=== PATIENT | female | born 1935 | race African-American/Black ===

== ENCOUNTER 2019-02-08 15:13 | Inpatient (IN) ==
[2019-02-08 16:36] LABS: BASO# 0.01 X1000 (0.0-0.2); BASO% 0.3 % (0.0-0.8); EOS# 0.15 X1000 (0.0-0.7); EOS% 4.4 % (0.0-10.0); HEMATOCRIT 33.8 % (37.0-47.0); HEMOGLOBIN 11.1 g/dL (12.0-16.0); IMM GRAN# 0.01 X1000 (0.0-0.04); IMM GRAN% 0.3 % (0.0-0.5); LYMPH# 1.01 X1000 (1.2-3.4); LYMPH% 29.8 % (20.5-51.1); MCH 29.6 PG (27-31); MCHC 32.8 g/dL (33-37); MCV 90.1 FL (81-99); MONO% 5.9 % (1.7-9.3); MPV 11.6 FL (7.4-10.4); NEUT# 2.01 X1000 (1.4-6.5); NEUT% 59.3 % (42.2-75.2); PLT 162 X1000 (130-400); RBC 3.75 XMIL (4.2-5.4); RDW 18.7 % (11.5-14.5); WBC 3.39 X1000 (4.8-10.8)
[2019-02-08 16:46] LABS: BILIRUBIN URINE NEGATIVE (NEGATIVE); BLOOD URINE NEGATIVE (NEGATIVE); CLARITY CLEAR (CLEAR); COLOR YELLOW; GLUCOSE URINE NEGATIVE (NEGATIVE); KETONE URINE TRACE mg/dL (NEGATIVE); LEUKOCYTES URINE NEGATIVE (NEGATIVE); NITRITE URINE POSITIVE (NEGATIVE); PH URINE 6.5; PROTEIN URINE TRACE mg/dL (NEGATIVE); UROBILINOGEN URINE NORMAL
[2019-02-08 16:48] LABS: INR 0.96; PROTIME 13.3 Seconds (11.0-16.0)
[2019-02-08 16:55] LABS: URINE SOURCE CATH
[2019-02-08 16:57] LABS: URINE BACTERIA 3+ /HFP; URINE EPITHELIAL CELLS <10 /HPF (<10); URINE RBC <10 /HPF (<10); URINE WBC <10 /HPF (<10)
[2019-02-08 16:58] LABS: URINE CAST NONE SEEN /LPF; URINE CRYSTAL NONE SEEN /HPF; URINE SMALL ROUND CELLS TRANSITIONAL PRESENT; URINE YEAST NONE SEEN /HPF
--- NOTE | 2019-02-08 17:00 | Diag Imaging Result Doc PS360 ---
EXAM: CT HEAD/C-SPINE W/O CONTRAST HISTORY: head injury TECHNIQUE: Routine noncontrasted CT scan of the brain and cervical spine as per standard protocol. Dose reduction technique. This exam was performed using automated exposure control, adjustment of mA or kV according to patient size, and/or use of iterative reconstruction technique COMPARISON: 01/02/2019 CT BRAIN: Extra-axial spaces: Moderate atrophy. Intracranial hemorrhage: None appreciated. Ventricular system: Ex vacuo dilatation left greater than right. Cerebral parenchyma: Stable encephalomalacia left temporal lobe. The white matter hypodensity compatible with microvascular disease. Midline shift: None. Cerebellum: Unremarkable. Brainstem: Unremarkable. Calvarium: Normal. Right frontal extracalvarial hematoma. No acute fracture. Paranasal sinuses and mastoid air cells: Frontal, ethmoid and right maxillary sinusitis. Mastoid air cells and middle ear cavities are clear. . Visualized orbits: Normal. CT CERVICAL SPINE: Fracture: None. There is degenerative disc disease and degenerative facet arthropathy. Vertebral alignment: Scoliosis. No subluxation. Soft tissues: Normal. IMPRESSION: Stable CT of the brain. No acute intracranial or cervical spine abnormality is appreciated. Sinusitis. Electronically signed by Mone Felton 02/08/2019 4:58 PM
--- NOTE | 2019-02-08 17:02 | Diag Imaging Result Doc PS360 ---
EXAM: CHEST-1 VIEW HISTORY: hypothermia, possible sepsis TECHNIQUE: Single view. COMPARISON: None. FINDINGS: There is cardiomegaly.. The pulmonary vasculature is not congested. No infiltrate, effusion, or pneumothorax is appreciated. Degenerative arthropathy about the bilateral shoulders. IMPRESSION: No acute cardiopulmonary abnormality is identified. Electronically signed by Mone Felton 02/08/2019 4:59 PM
[2019-02-08 17:06] LABS: ALBUMIN 3.3 g/dL (3.5-5.0); CREATININE 1.4 mg/dL (0.5-0.9); POTASSIUM 5.7 mmol/L (3.5-5.1); TOTAL BILIRUBIN 0.4 mg/dL (0.20-1.00); TOTAL PROTEIN 7.4 g/dL (6.3-8.3)
[2019-02-08] MEDS ORDERED: NS 1,000 ML IV ONE (17:12)
[2019-02-08] MEDS ORDERED: ROCEPHIN IV ONE (17:13)
--- NOTE | 2019-02-08 17:29 | PROVIDER DOCUMENTATION ---
This chart was entered by Emily Wolff Scribe, acting as scribe for Elli Langford MD. HPI-Head Injury - General Chief Complaint: Head Injury Stated Complaint: FALL/HEAD INJURY Time Seen by Provider: 02/08/19 15:35 Source: family (son), EMS Allergies/Adverse Reactions: Patient Allergies Allergy/AdvReac Type Severity Reaction Status Date / Time Penicillins Allergy Unknown Verified 02/08/19 16:57 Home Medications: Home Medication List Medication Instructions Recorded Confirmed Last Taken Type Acetaminophen [Tylenol] 2 tab PO Q6H PRN 02/08/19 02/08/19 Unknown History Cholecalciferol (Vit D3) [Vitamin 1 tab PO DAILY 02/08/19 02/08/19 Unknown History D3] Donepezil [Aricept] 1 tab PO DAILY 02/08/19 02/08/19 Unknown History Furosemide [Lasix] 10 mg PO DIRECTED 02/08/19 02/08/19 Unknown History Levetiracetam [Keppra] 500 mg PO DAILY 02/08/19 02/08/19 Unknown History Levothyroxine [Synthroid] 1 tab PO DAILY 02/08/19 02/08/19 Unknown History Melatonin 3 tab PO HS 02/08/19 02/08/19 Unknown History Memantine HCl 1 tab PO DAILY 02/08/19 02/08/19 Unknown History Nitroglycerin [Nitrostat] 1 tab SUBLINGUAL DIRECTED PRN 02/08/19 02/08/19 Unknown History Polyethylene Glycol 3350 [Miralax] 17 gm PO DAILY PRN 02/08/19 02/08/19 Unknown History Potassium Chloride E.r. [Micro-K] 1 cap PO DAILY 02/08/19 02/08/19 Unknown History Quetiapine Fumarate [Seroquel] 12.5 mg PO DIRECTED 02/08/19 02/08/19 Unknown History Tramadol [Ultram] 1 tab PO BID 02/08/19 02/08/19 Unknown History Trolamine Salicylate [Asper-Flex] 1 applic TOPICAL BID 02/08/19 02/08/19 Unknown History - History of Present Illness-Head Injury Nature of Presenting Problem: 83yof presents to ED by EMS cc head injury to forehead above right eye after falling at the [facility]where she resides according to EMS. Pt son at bedside and reports pt is baseline. Pt rectal temp is 92.7. Pt has hx of seizures, dementia, CHF, HTN and kidney disease. Head Injury Location: reports: frontal Severity: reports: moderate Onset/Duration: reports: just prior to arrival Timing: reports: still present Method of Injury: reports: fell Any recent trauma/injury?: reports: to head Locality of Occurance: Home Similar Symptoms Previously?: No Recently seen or treated by another doctor?: No Review of Systems - Adult - REVIEW OF SYSTEMS - ADULT ROS:: ROS per EMS Constitutional: reports: see HPI, other (low temp). denies: chills, fever Eyes: reports: no symptoms reported Ears, Nose, Mouth & Throat: reports: no symptoms reported Cardiovascular: reports: no symptoms reported Respiratory: reports: no symptoms reported Gastrointestinal: reports: no symptoms reported Genitourinary: reports: no symptoms reported Musculoskeletal: reports: see HPI, other (head injury) Integumentary: reports: no symptoms reported Neurological: reports: no symptoms reported Psychiatric: reports: no symptoms reported Endocrine: reports: no symptoms reported Hematologic/Lymphatic: reports: no symptoms reported Allergic/Immunologic: reports: no symptoms reported All Other Systems: Reviewed and Negative Past History - Adult - PAST MEDICAL HISTORY-ADULT Review of Records: reports: Nursing Assessment Review, Medications Reviewed, Social history reviewed & non-contributory. Major Childhood Illnesses: reports: denies history Cardiovascular: reports: denies history Respiratory: reports: denies history Gastrointestinal: reports: denies history Obstetrical/Gynecological: reports: denies history Genitourinary: reports: denies history Musculoskeletal: reports: denies history Neurological: reports: denies history Endocrine/Immune: reports: denies history Other Conditions: reports: denies history - IMMUNIZATION STATUS Childhood Immunizations: See Nurse Assessment Flu Vaccine: See Nurse Assessment - FAMILY HISTORY Family History: reviewed, not pertinent Physical Exam- Neurological - Physical Exam-Neuro Initial Vital Signs Reviewed: Yes General Appearance: negative: anxious Eye Exam: bilateral eye: normal inspection, PERRL HENMT: normocephalic/atraumatic, moist mucous membranes Head Injury: contusions (forehead above right eye), swelling (forehead above right eye). negative: active bleeding, raccoon eyes Respiratory: chest non-tender, lungs clear, normal breath sounds. negative: stridor, wheezing Cardiovascular: normal peripheral pulses, regular rate, rhythm, no edema. negative: bradycardia, tachycardia log getter Exam: normal hearing, PERRL Integumentary: warm/dry. negative: diaphoresis, rash Progress - PLAN OF CARE/RESULTS Progress/Plan/Lab Results: Vital Signs - 8 hr 02/08/19 15:18 02/08/19 15:53 02/08/19 16:00 Temperature 92.7 F L Pulse Rate 67 57 L Respiratory Rate 16 14 Blood Pressure 108/079 108/66 O2 Sat by Pulse Oximetry 95 98 02/08/19 17:16 Temperature 93.7 F L Pulse Rate Respiratory Rate Blood Pressure O2 Sat by Pulse Oximetry Laboratory Results - last 24 hr 02/08/19 02/08/19 02/08/19 16:01 16:10 16:10 WBC 3.39 L RBC 3.75 L Hgb 11.1 L Hct 33.8 L MCV 90.1 MCH 29.6 MCHC 32.8 L RDW Std Deviation 18.7 H Plt Count 162 MPV 11.6 H Immature Gran % (Auto) 0.3 Neut % (Auto) 59.3 Lymph % (Auto) 29.8 Woods % (Auto) 5.9 Eos % (Auto) 4.4 Baso % (Auto) 0.3 Immature Gran # (Auto) 0.01 Neut # (Auto) 2.01 Lymph # (Auto) 1.01 L Woods # (Auto) 0.20 Eos # (Auto) 0.15 Baso # (Auto) 0.01 PT INR PTT (Actin FS) Sodium 142 Potassium 5.7 H Chloride 110 H Carbon Dioxide 20 L Anion Gap 12 BUN 19 Creatinine 1.4 H Estimated GFR/1.73 m2 36 BUN/Creatinine Ratio 14 Glucose 107 H POC Glucose 116 H Calculated Osmolality 286 Calcium 9.0 Total Bilirubin 0.40 AST 31 H ALT 21 Alkaline Phosphatase 199 H Creatine Kinase 122 Troponin T Total Protein 7.4 Albumin 3.3 L Globulin 4.0 Albumin/Globulin Ratio 1.0 Plasma Lactate Urine Source Urine Color Urine Clarity Urine pH Ur Specific [place] Urine Protein Urine Ketones Urine Blood Urine Nitrite Urine Bilirubin Urine Urobilinogen Urine Microscopic RBC Urine WBC Urine Microscopic WBC Ur Epithelial Cells Urine Crystals Small Round Cells Urine Bacteria Urine Casts Urine Yeast Urine Glucose 02/08/19 02/08/19 02/08/19 16:10 16:10 16:10 WBC RBC Hgb Hct MCV MCH MCHC RDW Std Deviation Plt Count MPV Immature Gran % (Auto) Neut % (Auto) Lymph % (Auto) Woods % (Auto) Eos % (Auto) Baso % (Auto) Immature Gran # (Auto) Neut # (Auto) Lymph # (Auto) Woods # (Auto) Eos # (Auto) Baso # (Auto) PT 13.3 INR 0.96 PTT (Actin FS) 40.0 Sodium Potassium Chloride Carbon Dioxide Anion Gap BUN Creatinine Estimated GFR/1.73 m2 BUN/Creatinine Ratio Glucose POC Glucose Calculated Osmolality Calcium Total Bilirubin AST ALT Alkaline Phosphatase Creatine Kinase Troponin T 0.026 Total Protein Albumin Globulin Albumin/Globulin Ratio Plasma Lactate 2.0 Urine Source Urine Color Urine Clarity Urine pH Ur Specific [place] Urine Protein Urine Ketones Urine Blood Urine Nitrite Urine Bilirubin Urine Urobilinogen Urine Microscopic RBC Urine WBC Urine Microscopic WBC Ur Epithelial Cells Urine Crystals Small Round Cells Urine Bacteria Urine Casts Urine Yeast Urine Glucose 02/08/19 16:15 WBC RBC Hgb Hct MCV MCH MCHC RDW Std Deviation Plt Count MPV Immature Gran % (Auto) Neut % (Auto) Lymph % (Auto) Woods % (Auto) Eos % (Auto) Baso % (Auto) Immature Gran # (Auto) Neut # (Auto) Lymph # (Auto) Woods # (Auto) Eos # (Auto) Baso # (Auto) PT INR PTT (Actin FS) Sodium Potassium Chloride Carbon Dioxide Anion Gap BUN Creatinine Estimated GFR/1.73 m2 BUN/Creatinine Ratio Glucose POC Glucose Calculated Osmolality Calcium Total Bilirubin AST ALT Alkaline Phosphatase Creatine Kinase Troponin T Total Protein Albumin Globulin Albumin/Globulin Ratio Plasma Lactate Urine Source CATH Urine Color YELLOW Urine Clarity CLEAR Urine pH 6.5 Ur Specific [place] 1.020 Urine Protein TRACE A Urine Ketones TRACE Urine Blood NEGATIVE Urine Nitrite POSITIVE A Urine Bilirubin NEGATIVE Urine Urobilinogen NORMAL Urine Microscopic RBC <10 Urine WBC NEGATIVE Urine Microscopic WBC <10 Ur Epithelial Cells <10 Urine Crystals NONE SEEN Small Round Cells TRANSITIONAL PRESENT Urine Bacteria 3+ Urine Casts NONE SEEN Urine Yeast NONE SEEN Urine Glucose NEGATIVE Orders Category Date Time Status Cardiac Monitoring DIRECTED Care 02/08/19 15:57 Active Vaughn Cath Insertion ORDERED Care 02/08/19 16:24 Active IV Insertion ORDERED Care 02/08/19 15:57 Completed Notify MD of + Sepsis Screen NOW Care 02/08/19 15:57 Active Notify Physician As Ordered Care 02/08/19 15:57 Active CHEST-1 VIEW [RAD] Stat Exams 02/08/19 15:[address] HEAD/C-SPINE W/O CONTRAST [CT] Stat Exams 02/08/19 15:56 Completed BLOOD CULTURE [BLDCUL] Stat Lab 02/08/19 16:10 Ordered CBC WITH DIFF [HEME] Stat Lab 02/08/19 16:10 Completed CK PROFILE [SP CHEM] Stat Lab 02/08/19 16:10 Completed COMPREHENSIVE METABOLIC PANEL [CHEM] Stat Lab 02/08/19 16:10 Completed LACTATE, PLASMA [CHEM] Lab 02/08/19 16:10 Completed LACTATE, PLASMA [CHEM] Lab 02/08/19 19:00 Uncollected LACTATE, PLASMA [CHEM] Lab 02/08/19 22:00 Uncollected PROTIME WITH INR [COAG] Stat Lab 02/08/19 16:10 Completed PTT [COAG] Stat Lab 02/08/19 16:10 Completed TROPONIN T Stat Lab 02/08/19 16:[address] W/POSS RFLX CULT [URINALYSIS] Stat Lab 02/08/19 16:15 Completed URINE CULTURE [RM] Routine Lab 02/08/19 16:58 Ordered 0.9% Sodium Chloride Inj [Ns] 1,000 ml Med 02/08/19 17:12 Active IV 999 mls/hr CefTRIAXONE [Rocephin] Med 02/08/19 17:13 Discontinued 1 gm IV NOW ONE Oxygen Device Stat Oth 02/08/19 15:57 Active Result Diagrams: 02/08/19 16:10 02/08/19 16:10 - XRAY 1 XRAY: Bilateral XRAY Study: Chest Impression: See EMR Report (IMPRESSION: No acute cardiopulmonary abnormality is identified. Electronically signed by Mone Mirriadabhinav 02/08/2019 4:59 PM) - CT/MRI 1 MRI Study: Brain, C-Spine Impression: See EMR Report (IMPRESSION: Stable CT of the brain. No acute intracranial or cervical spine abnormality is appreciated. Sinusitis. Electronically signed by Mone Mirriadabhinav 02/08/2019 4:58 PM) - CONSULTS/PCP/HOSPITALIST Notification #1 *Consult/PCP/Hospitalist*: Dr. Jaramillo Time Discussed: 17:21 Consult Disposition: Admit (accepted pt) Departure - Departure Date of Disposition Decision: 02/08/19 Time of Disposition Decision: 17:21 DIAGNOSIS: Hypothermia Qualifiers: Encounter type: initial encounter Qualified Code(s): T68.XXXA - Hypothermia, initial encounter UTI (urinary tract infection) Qualifiers: Urinary tract infection type: site unspecified Hematuria presence: without hematuria Qualified Code(s): N39.0 - Urinary tract infection, site not specified Disposition: ADMITTED INPATIENT 09 Certified Medical Emergency: Emergent Condition: Fair Referrals and Follow-Ups: None,PCP [Primary Care Provider] - - Critical Care Note This patient required my direct & personal management of CC.: Yes Total Time (mins): 45 Critical Care Statement: This patient required my direct personal management to treat or rule out processes, the absence of which, could potentiallly result in sudden, clinically significant life or limb threatening deterioration. Attestation - Physician/ NAT Attestation Patient care was provided by Advanced Practice Provider:: No The physician spent face to face time with patient:: Yes Advanced Practice Provider documentation review:: Supervising physician onsite and consulted in the evaluation and care of this patient. The physician did have a face to face encounter with the patient. This chart was documented by the indicated scribe, (Emily Wolff Scribe) and accurately reflects the services I performed and decisions made by me, Elli Langford MD, as attested by the provider's signature.
[2019-02-08] MEDS ORDERED: MIRALAX PO PRN (19:15)
[2019-02-08] MEDS ORDERED: ZOFRAN IV PRN (19:15)
[2019-02-08] MEDS ORDERED: TYLENOL PO PRN (19:15)
[2019-02-08] MEDS: HEPARIN SUBQ SCH (20:25)
[2019-02-08] MEDS: NS 1,000 ML IV SCH (20:25)
[2019-02-08] MEDS: MAXIPIME 1 GM in NS 50 ML IV SCH (20:25)
[2019-02-08] MEDS ORDERED: MELATONIN PO SCH (21:00)
[2019-02-09] MEDS: NS 1,000 ML IV SCH ×3 (03:43→21:05)
[2019-02-09 06:32] LABS: BASO# 0.02 X1000 (0.0-0.2); BASO% 0.4 % (0.0-0.8); EOS# 0.07 X1000 (0.0-0.7); EOS% 1.5 % (0.0-10.0); HEMATOCRIT 30.6 % (37.0-47.0); HEMOGLOBIN 9.8 g/dL (12.0-16.0); IMM GRAN# 0.01 X1000 (0.0-0.04); IMM GRAN% 0.2 % (0.0-0.5); LYMPH# 1.13 X1000 (1.2-3.4); LYMPH% 24.3 % (20.5-51.1); MCH 29.1 PG (27-31); MCV 90.8 FL (81-99); MONO# 0.32 X1000 (0.11-0.59); MONO% 6.9 % (1.7-9.3); MPV 11.2 FL (7.4-10.4); NEUT% 66.7 % (42.2-75.2); PLT 191 X1000 (130-400); RBC 3.37 XMIL (4.2-5.4); RDW 18.7 % (11.5-14.5); WBC 4.65 X1000 (4.8-10.8)
[2019-02-09 06:34] LABS: CALCIUM 8.5 mg/dL (8.8-10.2); CREATININE 1.9 mg/dL (0.5-0.9); POTASSIUM 5.6 mmol/L (3.5-5.1)
[2019-02-09] MEDS: SYNTHROID PO SCH ×2 (06:36)
--- NOTE | 2019-02-09 07:28 | Diag Imaging Result Doc PS360 ---
EXAM: CHEST-PORTABLE HISTORY: sob TECHNIQUE: AP chest COMPARISON: 02/08/2019 FINDINGS: The lungs are well expanded. The heart is enlarged. The vessels are not distended. There are no infiltrates. No effusion identified. IMPRESSION: Cardiomegaly Electronically signed by Casey Branch 02/09/2019 7:26 AM
[2019-02-09 07:50] LABS: I-STAT BE -6 mmoll (-2-3); I-STAT GLUCOSE 63 mg/dL (70-105); I-STAT HEMOGLOBIN 14.6 g/dL (11.5-17.5); I-STAT K 5.3 mmoll (3.5-4.9); I-STAT SODIUM 145 mmoll (138-146); I-STAT TCO2 20 mmoll (23-27); I-STAT pH 7.379 (7.350-7.450)
[2019-02-09] MEDS: HEPARIN SUBQ SCH ×2 (08:11→21:05)
[2019-02-09] MEDS: MAXIPIME 1 GM in NS 50 ML IV SCH ×2 (08:11→21:04)
[2019-02-09] MEDS: ARICEPT PO SCH (08:17)
[2019-02-09] MEDS: VITAMIN D PO SCH (08:17)
[2019-02-09] MEDS: KEPPRA PO SCH (08:17)
[2019-02-09] MEDS: NAMENDA PO SCH (08:17)
[2019-02-09] MEDS ORDERED: FLU VACCINE IM ONE (08:27)
[2019-02-09] MEDS ORDERED: SYNTHROID PO SCH (09:00)
[2019-02-09] MEDS ORDERED: KLOR-CON PO SCH (09:00)
[2019-02-09] MEDS: MELATONIN PO SCH (21:05)
--- NOTE | 2019-02-09 22:53 | HISTORY AND PHYSICAL ---
CHIEF COMPLAINT: Head injury. HISTORY OF PRESENT ILLNESS: The patient is an 83-year-old nonverbal female who [facility] after apparently having fallen at home. She has a bruise to her forehead over her right eye where she fell at the [facility] where she currently resides. In the ER apparently her temperature was 92.7 degrees rectally. She does have a history of seizures and dementia. Currently, no family is present, and the history is per the chart. ALLERGIES: Penicillin. MEDICATIONS: Vitamin D, Aricept, Lasix, Keppra 500 daily, Synthroid, melatonin, Namenda, Seroquel. PAST MEDICAL HISTORY: Significant for dementia, CHF, hypertension, chronic kidney disease. FAMILY HISTORY: Noncontributory. REVIEW OF SYSTEMS: Unobtainable from Ms. Edwards; however, the chart is noted to deny any knowledge of fevers, chills, cough, congestion, GI or issues. Denied any knowledge of focal weakness. SOCIAL HISTORY: Does not drink or smoke. She resides at [facility]. PHYSICAL EXAMINATION: VITAL SIGNS: Temp 92 degrees, currently 97 degrees, pulse 50s to 60s, respiratory rate 16 to 18, BP 108/60, sat 98% on room air. GENERAL: Patient is in no current respiratory distress. She is lying flatly in the bed. HEENT: Normocephalic. She is noted to have a bruise over her right forehead with some small swelling over her right eye but no bleeding. No bruising elsewhere is appreciable. NECK: Supple. No JVD. CARDIOVASCULAR: Regular rate. No murmurs. CHEST: Clear and nonlabored. ABDOMEN: Soft, nondistended. EXTREMITIES: Moves all extremities. NEUROLOGIC: Unable to assess. ASSESSMENT: 1. Hyperkalemia. Potassium 5.7. 2. Acute on chronic renal failure. 3. Hypertension, although patient currently is normotensive. 4. Hypothermia, although currently her temperature is back to normal. 5. Urinary tract infection. PLAN: She has been started on cefepime through the ER. We are going to continue to hold her potassium supplements. We will follow her potassium. Follow her clinical course. cc: Alfredo Wang MD
[2019-02-10] MEDS: NS 1,000 ML IV SCH ×3 (05:37→20:52)
[2019-02-10 05:38] LABS: HEMOGLOBIN 8.5 g/dL (12.0-16.0); MCH 28.9 PG (27-31); MCHC 31.5 g/dL (33-37); MCV 91.8 FL (81-99); MPV 10.8 FL (7.4-10.4); RBC 2.94 XMIL (4.2-5.4); RDW 18.5 % (11.5-14.5); WBC 4.95 X1000 (4.8-10.8)
[2019-02-10] MEDS: SYNTHROID PO SCH ×4 (05:38→08:03)
[2019-02-10 06:00] LABS: ALBUMIN 2.4 g/dL (3.5-5.0); CALCIUM 8.4 mg/dL (8.8-10.2); CREATININE 1.5 mg/dL (0.5-0.9); MAGNESIUM 1.4 mg/dL (1.5-2.7); POTASSIUM 4.4 mmol/L (3.5-5.1); TOTAL BILIRUBIN 0.6 mg/dL (0.20-1.00); TOTAL PROTEIN 6.1 g/dL (6.3-8.3)
[2019-02-10] MEDS: VITAMIN D PO SCH ×2 (07:49→08:04)
[2019-02-10] MEDS: KEPPRA PO SCH ×2 (07:49→08:04)
[2019-02-10] MEDS: MAXIPIME 1 GM in NS 50 ML IV SCH ×2 (07:49→20:51)
[2019-02-10] MEDS: NAMENDA PO SCH ×2 (07:49→08:04)
[2019-02-10] MEDS: HEPARIN SUBQ SCH ×2 (07:49→20:51)
[2019-02-10] MEDS: ARICEPT PO SCH ×2 (07:49→08:03)
[2019-02-10] MEDS: MELATONIN PO SCH (20:52)
--- NOTE | 2019-02-10 21:58 | PROGRESS NOTE ---
DATE: 02/10/2019 SUBJECTIVE: Patient is much more alert this morning. She does actually smile and seems to respond to questions. Family is in the room. PHYSICAL EXAMINATION: Vital Signs: Reviewed. Temperature is 97.5 degrees, pulse 60, respiratory 22, BP 135/65. General: Patient is much more alert today. Color appears improved. She does attempt to respond to questions. HEENT: Normocephalic. Neck: Supple. Cardiovascular: Regular rate. No murmurs. Chest: Clear. Abdomen: Soft. Extremities: Moves all extremities. ASSESSMENT: 1. Urinary tract infection, growing gram-negative rods. 2. Acute metabolic encephalopathy, improved. 3. Hyperkalemia, improved. 4. Hypertension, stable. 5. Hypothermia, stable. 6. Sepsis with hypothermia, metabolic encephalopathy, and urinary tract infection. 7. Acute on chronic renal failure. PLAN: Overall, patient has improved. She is DNR. We are going to continue antibiotics, continue to follow, and await culture. cc: Alfredo Wang MD
[2019-02-11] MEDS: NS 1,000 ML IV SCH ×3 (05:22→21:14)
[2019-02-11] MEDS: SYNTHROID PO SCH ×2 (06:01)
[2019-02-11] MEDS ORDERED: LEVAQUIN 500 MG/D5W 500 MG/100 ML IVPB IV SCH (08:00)
[2019-02-11] MEDS: HEPARIN SUBQ SCH ×2 (08:12→20:59)
[2019-02-11] MEDS: KEPPRA PO SCH (08:19)
[2019-02-11] MEDS: ARICEPT PO SCH (08:19)
[2019-02-11] MEDS: NAMENDA PO SCH (08:19)
[2019-02-11] MEDS: VITAMIN D PO SCH (08:20)
[2019-02-11] MEDS: MELATONIN PO SCH (20:58)
[2019-02-11] MEDS: MAXIPIME 1 GM in NS 50 ML IV SCH (21:00)
--- NOTE | 2019-02-11 22:51 | PROGRESS NOTE ---
DATE: 02/11/2019 SUBJECTIVE: Patient is doing better per her family and is essentially back to her baseline. PHYSICAL EXAMINATION: Vital Signs: Reviewed. Temperature 97.7 degrees, pulse 72, respiratory rate 18, BP 142/77. General: The patient is awake. She does respond to questions although minimally. HEENT: Normocephalic. Neck: Supple. Cardiovascular: Regular rate. Chest: Clear. Abdomen: Soft. Extremities: Moves all extremities. ASSESSMENT: 1. Extended spectrum beta-lactamase positive Escherichia coli, sensitive to Levaquin. 2. Hyperkalemia, resolved. 3. Acute on chronic renal failure, improved. 4. Hypertension. 5. Hypothyroidism. PLAN: We will continue patient in the hospital. We will change her to Levaquin as her sensitivity is good. We will follow. Hopefully, she can transition back to rehab over the next day or 2 if she tolerates. cc: Alfredo Wang MD
[2019-02-12] MEDS: NS 1,000 ML IV SCH (04:44)
[2019-02-12] MEDS: SYNTHROID PO SCH ×2 (04:45→04:46)
[2019-02-12 07:50] VITALS: BP 146/87
[2019-02-12] MEDS ORDERED: LEVAQUIN PO SCH (09:00)
--- NOTE | 2019-02-12 09:27 | DISCHARGE SUMMARY ---
ADMISSION DATE: 02/08/2019 DISCHARGE DATE: 02/12/2019 DISCHARGE DIAGNOSIS: 1. Extended spectrum beta-lactamase positive Escherichia coli urinary tract infection sensitive to Levaquin. 2. Hyperkalemia, resolved. 3. Acute volume depletion, resolved. 4. Dementia. 5. Hypertension, stable. CONSULTATIONS: None. PROCEDURES: None. BRIEF HOSPITAL COURSE: The patient is an 83-year-old female who presented to the ER with acute metabolic encephalopathy secondary to a urinary tract infection with Escherichia coli. She was initially placed on Maxipime which she tolerated well. Over the next 24 hours, her mental status returned back to her baseline. She was alert. She was able to smile and answer simple questions. Her son noted that she was essentially back to her baseline. Her urine grew Escherichia coli which was sensitive to Levaquin. We did switch her to Levaquin and ultimately to a pill. She was able to tolerate this when the pill was crushed. Otherwise, she has had no complications. DISPOSITION: Greater than 30 minutes was spent in total care. Patient will be discharged to rehab. She will continue to follow up with facility as previously. She will continue Levaquin for 7 days. No changes made on her chronic home medications, diet or activity. cc: Alfredo Wang MD
[2019-02-12] MEDS: KEPPRA PO SCH (10:26)
[2019-02-12] MEDS: ARICEPT PO SCH (10:26)
[2019-02-12] MEDS: NAMENDA PO SCH (10:26)
[2019-02-12] MEDS: VITAMIN D PO SCH (10:26)
[2019-02-12] MEDS: HEPARIN SUBQ SCH (10:27)
== END 2019-02-12 11:55 | DRG 871 ==
LOC: P.ED 15:13 → P.MEDSURG 18:52 → SUATTDRO 18:52
PROVIDERS: ATTEND Family Medicine